=== PATIENT | female | born 1980 ===

== ENCOUNTER 2020-10-26 05:50 | Day surgery (SDC) | payer OTHER ==
[~2020-10-26 05:50] MED LIST: CINNAMON500 MG PO; GARLIPURE600 MG PO; VIT C-ROSE HIP500 MG PO
[2020-10-26] MEDS ORDERED: PERCOCET 5-3251 EACH PO (09:06)
== END 2020-10-26 11:30 | disposition home or self-care (01) ==
LOC: CIR.AMB 05:50
PROVIDERS: ATTEND Surgery
DX: D34 Benign neoplasm of thyroid gland (principal); D35.1 Benign neoplasm of parathyroid gland; Z20.822 Contact with and (suspected) exposure to COVID-19